=== PATIENT | female | born 1955 | race Caucasian/White ===

== ENCOUNTER 2018-01-11 21:55 | Emergency (ER) | payer OTHER ==
[~2018-01-11] VITALS: Ht 157.5 cm; Wt 54.4 kg
[2018-01-11 22:06] VITALS: BP_SYST 131
[2018-01-11 22:50] VITALS: BP_SYST 129
== END 2018-01-11 22:50 | disposition home or self-care (01) ==
LOC: SED 21:55
DX: S92.351A Displaced fracture of fifth metatarsal bone, right foot, initial encounter for closed fracture (principal); R20.2 Paresthesia of skin; Z88.2 Allergy status to sulfonamides; Z88.6 Allergy status to analgesic agent; W10.8XXA Fall (on) (from) other stairs and steps, initial encounter; Y93.01 Activity, walking, marching and hiking; Y92.89 Other specified places as the place of occurrence of the external cause; Y99.8 Other external cause status
CPT/HCPCS: 99284

== ENCOUNTER 2018-01-19 10:45 | Day surgery (SDC) | payer OTHER ==
[2018-01-18 14:53] LABS: BASOPHILS # (AUTO) 0.1 K/uL (0.0-0.2); BASOPHILS % (AUTO) 1.1 % (0.0-2.0); EOSINOPHILS # (AUTO) 0.1 K/uL (0.0-0.4); EOSINOPHILS % (AUTO) 2.5 % (0.0-4.0); HEMATOCRIT 39.8 % (36-48); HEMOGLOBIN 13.4 g/dL (12.0-16.0); LYMPHOCYTES # (AUTO) 1.5 K/uL (1.0-5.5); LYMPHOCYTES % (AUTO) 30.2 % (20.5-51.5); MEAN CORPUSCULAR HEMOGLOBIN 33 pg (27-31); MEAN CORPUSCULAR HGB CONC 34 % (32-36); MEAN CORPUSCULAR VOLUME 98 fL (79.0-98.0); MONOCYTES # (AUTO) 0.3 K/uL (0.0-1.0); MONOCYTES % (AUTO) 6.4 % (1.7-9.3); NEUTROPHILS % (AUTO) 59.8 % (40.0-70.0); PLATELET COUNT (AUTO) 343 K/uL (130-430); RED BLOOD CELL COUNT(AUTO) 4.07 MIL/uL (4.2-6.2); RED CELL DISTRIBUTION WIDTH 12.8 % (9.0-15.0)
[2018-01-18 15:10] LABS: BILIRUBIN,URINE NEGATIVE (NEGATIVE); BLOOD, URINE NEGATIVE (NEGATIVE); CLARITY/URINE CLEAR (CLEAR); COLOR,URINE YELLOW (YELLOW); GLUCOSE,URINE NEGATIVE (NEGATIVE); KETONES,URINE NEGATIVE (NEGATIVE); LEUKOCYTE ESTERASE ,URINE NEGATIVE (NEGATIVE); NITRITE, URINE NEGATIVE (NEGATIVE); PROTEIN URINE NEGATIVE (NEGATIVE); UROBILINOGEN,URINE 0.2 (0.2-1.0)
[2018-01-18 15:27] LABS: PROTHROMBIN TIME 9.7 SECS (9.5-12.5)
[2018-01-18 15:39] LABS: POTASSIUM 3.9 mmol/L (3.5-5.1)
[~2018-01-19] VITALS: Ht 154.9 cm; Wt 56.7 kg
[2018-01-19] MEDS ORDERED: POLYMYXIN 500,000/BACIT.10,000 UNITS in NS IRR 1 L IR ONE (12:55)
[2018-01-19] MEDS ORDERED: LR 1,000 ML IV SCH (13:35)
[2018-01-19] MEDS ORDERED: MEPERIDINE HCL/PF 25 MG/ML DISP.SYRIN IVP PRN (13:45)
[2018-01-19] MEDS ORDERED: MORPHINE 4 MG/ML INJ. SYRINGE IVP PRN ×2 (13:45)
[2018-01-19] MEDS ORDERED: MORPHINE SULFATE 10 MG/ML VIAL IVP PRN (13:45)
[2018-01-19] MEDS ORDERED: KETOROLAC TROMETHAMINE 30 MG VIAL ONE (14:10)
[2018-01-19] MEDS ORDERED: LR 1,000 ML IV.SOLN IV ONE (14:10)
[2018-01-19] MEDS ORDERED: PROPOFOL 200MG/ 20ML VIAL (DIPRIVAN) IV ONE (14:10)
[2018-01-19] MEDS ORDERED: fentaNYL CITRATE 250 MCG/5 ML AMP ONE (14:10)
[2018-01-19] MEDS ORDERED: ONDANSETRON HCL 4 MG/2 ML VIAL ONE (14:10)
[2018-01-19] MEDS ORDERED: MIDAZOLAM HCL 5 MG/ML VIAL (VERSED) IV ONE (14:10)
[2018-01-19] MEDS ORDERED: DEXAMETHASONE SOD PHOSPHATE 4 MG/ML VIAL ONE (14:10)
[2018-01-19] MEDS ORDERED: NS IRRIG SOLN 1000 ML IR ONE (14:10)
[2018-01-19] MEDS ORDERED: ROCURONIUM BROMIDE 10 MG/ML (ZEMURON) ONE (14:10)
[2018-01-19] MEDS ORDERED: SEVOFLURANE 15 MIN GAS INH ONE (14:10)
[2018-01-19] MEDS ORDERED: NS 1000 ML BAG IV ONE (14:10)
[2018-01-19] MEDS ORDERED: MORPHINE 4 MG/ML INJ. SYRINGE ONE (14:38)
[2018-01-19] MEDS ORDERED: HYDROcodone/ACETAMIN 5-325 MG TAB (NORCO/ VICODIN) ONE (15:44)
[2018-01-19] MEDS ORDERED: HYDROcodone/ACETAMIN 5-325 MG TAB (NORCO/ VICODIN) PO ONE (15:45)
[2018-01-19 16:57] VITALS: BP_SYST 128
== END 2018-01-19 16:35 | disposition home or self-care (01) ==
LOC: SDS 10:45 → SMU 10:47 → SDS 16:35
PROVIDERS: ATTEND Orthopaedic Surgery
DX: S92.351A Displaced fracture of fifth metatarsal bone, right foot, initial encounter for closed fracture (principal); W01.0XXA Fall on same level from slipping, tripping and stumbling without subsequent striking against object, initial encounter; Y93.9 Activity, unspecified; Y92.89 Other specified places as the place of occurrence of the external cause; Y99.9 Unspecified external cause status; Z88.2 Allergy status to sulfonamides; Z88.8 Allergy status to other drugs, medicaments and biological substances; Z98.890 Other specified postprocedural states; Z79.899 Other long term (current) drug therapy
CPT/HCPCS: 28485; 36415; 71046; 76000; 80048; 81003; 85025; 85610; 85730; 93005; C1713; J1100; J1885; J2250; J2270; J2405; J2704; J3010; J7030; J7120